=== PATIENT | female | born 2000 | race Two or more races ===

== ENCOUNTER → 2024-01-07 | Outpatient (CLI) | payer BC ==
--- NOTE | 2024-01-07 11:19 | XR ---
EXAMINATION TYPE: XR nasal bone INDICATION: Patient age:Female; 23 years old; Reason for study: S01.21XA LACERATION WITHOUT FOREIGN BODY OF NOSE,; H. COMPARISON: None TECHNIQUE: Nasal bridge was evaluated and three views. FINDINGS: The anterior nasal spine has a normal radiographic appearance as well. Slight nasal septal deviation to the left with small spurring. Mild anterior nasal soft tissue swelli ng with single tiny focus of gas. Limited evaluation of the paranasal sinuses demonstrates normal aeration. No radiopaque foreign body. IMPRESSION: 1. No convincing evidence for nasal bone fracture. Consider CT maxillofacial if clinically warranted . 2. Mild nasal soft tissue swelling with laceration.
== END | disposition home or self-care (01) ==
LOC: RADXRMAIN 10:10
PROVIDERS: ATTEND Family Medicine
DX: S01.21XA Laceration without foreign body of nose, initial encounter (principal)
CPT/HCPCS: 70160